=== PATIENT | female | born 1965 | race Caucasian/White ===

== ENCOUNTER 2018-07-09 16:14 | Observation (INO) ==
[2018-07-09] MEDS ORDERED: Ipratropium/Albuterol Neb 3 ML IH ONE (16:45)
[2018-07-09] MEDS ORDERED: methylPREDNISolone 125 MG/2 ML VIAL IVP ONE (16:45)
[2018-07-09 17:08] LABS: Basophils % 0.3 %; Eosinophils # 0.4 K/mcL (0.0-0.6); Eosinophils % 3.3 %; Hematocrit 35.9 % (35.3-44.9); Hemoglobin 11.6 g/dL (11.5-15.4); Lymphocytes # 1.5 K/mcL (0.6-4.6); Lymphocytes % 14.2 %; Mean Corpuscular HGB Conc 32.3 g/dL (31.6-35.5); Mean Corpuscular Hemoglobin 30.3 pg (28.0-33.3); Mean Corpuscular Volume 93.7 fL (83.0-100.0); Mean Platelet Volume 9.4 fL (9.4-12.4); Monocytes # 1.1 K/mcL (0.0-1.3); Neutrophils # 7.6 K/mcL (1.6-8.9); Platelet Count 284 K/mcL (140-400); Red Blood Count 3.83 M/mcL (3.82-4.97); Red Cell Distribution Width 14.3 % (11.5-14.5); Segmented Neutrophils % 70.2 %
[2018-07-09 17:16] LABS: INR 1.1
[2018-07-09 17:19] LABS: Activated Partial Thrombo Time 32.1 Seconds (26.0-36.0)
[2018-07-09 17:27] LABS: BUN/Creatinine Ratio 9 (6-26); Blood Urea Nitrogen 9 mg/dL (6-20); Calcium 8.8 mg/dL (8.6-10.3); Carbon Dioxide 29 mEq/L (23-29); Chloride 102 mEq/L (98-107); Glucose 118 mg/dL (70-105); Osmolality,Calculated 286 (280-300); Potassium 4.2 mEq/L (3.5-5.1); Sodium 138 mEq/L (136-145); Troponin I < 0.03 ng/mL (< 0.04); eGFR For Non-African Americans 58 (> 60)
--- NOTE | 2018-07-09 17:50 | Emergency Department Note ---
Disposition Clinical Impression: COPD with exacerbation Pneumonia Qualifiers: Pneumonia type: due to unspecified organism Laterality: bilateral Lung locati on: lower lobe of lung Qualified Code(s): J18.1 - Lobar pneumonia, unspecified organism Disposition: Admitted As Inpatient Condition: Good SOB HPI - General Chief Complaint: ED General Medical Stated Complaint: Chest Pain with Cough Time Seen by Provider: 07/09/18 17:12 Source: patient, EMS Mode of arrival: EMS Limitations: no limitations Nursing Notes Reviewed: Yes Vital Signs Reviewed: Yes - History of Present Illness Patient presents to the ED via EMS complaining of shortness of breath, productive cough and chest discomfort while coughing. Symptoms been going on for 2 days. Cough is been productive of thick green sputum. Chest discomfort is only during coughing spells. She denies any nasal congestion, rhinorrhea or sore throat. No fever or chills. Shortness of breath is been getting worse over the past few days despite using her regular prescribed inhalers and her albuterol nebulizer treatment every 4 hours. She denies any fever or chills. No abdominal pain, nausea, vomiting or diarrhea. She states she had family memb ers that had the flu over a week ago but she has not had any body aches or fevers. She does have a history of COPD and asthma and wears 3 L of oxygen at home for over 7 years. She has been feeling short of breath despite wearing her usual oxygen. She was last on antibiotics and steroids approximately 3 weeks ago by her PCP for "wheezing". Patient states that EMS thought that her hands and feet were swollen but she states that they are normal size for her and there is no pain or swelling in her extremities. She denies any orthopnea or PND. She received one albuterol treatment by EMS. She is feeling better since also now receiving Solu-Medrol and a DuoNeb here in the ED. - Related Data Home Medications Medication Instructions Recorded Confirmed Bupropion HCl [Wellbutrin Xl] 300 mg PO DAILY 02/13/15 07/09/18 Metoprolol [Lopressor] 25 mg PO BID 02/13/15 07/09/18 Methocarbamol [Robaxin-750] 750 mg PO DAILY PRN 05/12/16 07/09/18 Acetylcysteine [Nac] 500 mg PO BID #0 03/31/17 07/09/18 Albuterol Sulfate [Ventolin Hfa] 2 puff IH Q4H PRN 03/31/17 07/09/18 Aspirin Enteric Coated [Aspirin EC] 81 mg PO DAILY 03/31/17 07/09/18 Atorvastatin Calcium [Lipitor] 20 mg PO DAILY 03/31/17 07/09/18 Benztropine [Cogentin] 0.5 mg PO BID 03/31/17 07/09/18 Celecoxib [Celebrex] 100 mg PO BID 03/31/17 07/09/18 Ergocalciferol (VITAMIN D2) 50,000 unit PO SA 03/31/17 07/09/18 [Vitamin D2] Furosemide [Lasix] 20 mg PO DAILY 03/31/17 07/09/18 Indomethacin 50 mg PO TID 03/31/17 07/09/18 Ipratropium/Albuterol Neb [Duoneb] 3 ml IH Q6HR 03/31/17 07/09/18 Mirtazapine [Remeron] 15 mg PO HS 03/31/17 07/09/18 Montelukast [Singulair] 10 mg PO HS 03/31/17 07/09/18 Omeprazole [PriLOSEC] 40 mg PO DAILY 03/31/17 07/09/18 Ranitidine HCl [Zantac] 300 mg PO DAILY 03/31/17 07/09/18 Umeclidinium [place] [Incruse 1 puff IH DAILY 03/31/17 07/09/18 Ellipta] clonazePAM [Klonopin] 0.5 mg PO TID 03/31/17 07/09/18 lamoTRIgine [Lamictal] 150 mg PO BID 03/31/17 07/09/18 metFORMIN [Glucophage] 500 mg PO BIDWM 03/31/17 07/09/18 risperiDONE [Risperdal] 2 mg PO BID 03/31/17 07/09/18 Cyanocobalamin (Vitamin B-12) 1,000 mcg PO DAILY 07/23/17 07/09/18 [Vitamin B-12] Ferrous Sulfate 325 mg PO DAILY 07/23/17 07/09/18 Pantoprazole Sodium [Protonix] 40 mg PO DAILY 07/23/17 07/09/18 Allergies Allergy/AdvReac Type Severity Reaction Status Date / Time ciprofloxacin [From Cipro] Allergy Hives Verified 07/23/17 10:39 levofloxacin [From Levaquin] Allergy Hives Verified 07/23/17 10:39 moxifloxacin [From Avelox] Allergy Hives Verified 07/23/17 10:39 ziprasidone [From Geodon] Allergy Rash Verified 07/23/17 10:39 Cyclobenzaprine AdvReac Agitated Verified 07/23/17 10:39 [From Flexeril] lurasidone [From Latuda] AdvReac mood Verified 07/23/17 10:39 changes Constitutional: Denies: fever, chills, weakness, weight change Eyes: Denies: eye pain, eye discharge, vision change ENT ED: Denies: ear pain, throat pain, dental pain, hearing loss, epistaxis, congestion, dysphagia Cardiovascular: Denies: chest pain, palpitations, dyspnea on exertion, edema, syncope Respiratory: Reports: cough, dyspnea, wheezes, sputum production. Denies: stridor Gastrointestinal: Denies: abdominal pain, nausea, vomiting, diarrhea, consti pation, hematemesis, melena, hematochezia Genitourinary: Denies: dysuria, frequency, hematuria, discharge Musculoskeletal: Denies: back pain, neck pain, arthralgia, myalgia Integumentary: Denies: rash, abrasion, lesions Neurological: Denies: headache, weakness, numbness, paresthesias, confusion, abn ormal gait, vertigo Psychiatric: Denies: anxiety, depression, suicidal thoughts, homicidal thoughts, auditory hallucinations, visual hallucinations Endocrine: Denies: fatigue Hematological/Lymphatic: Denies: easy bleeding, easy bruising Allergic/Immunologic: Denies: facial swelling, urticaria Past Medical History - Past Medical History Medical history: Reports: arthritis, asthma, COPD, coronary artery disease, diabetes, GERD, hyperlipidemia, hypertension, renal disease, other Surgical history: Reports: , cholecystectomy, hysterectomy, knee replacement Psychiatric history: Reports: anxiety, depression REWINDER history: Reports: no REWINDER history - Social History Smoking Status: Current every day smoker Smokeless Tobacco Status: No Alcohol use: Reports: none Drug use: Reports: none Physical Exam - General Limitations: no limitations General appearance: alert, in no apparent distress - Head Head exam: atraumatic, normocephalic, normal inspection - Eye Eye exam: Present: normal appearance, PERRL, EOMI - ENT ENT exam: normal exam, normal oropharynx, mucous membranes moist - Neck Neck exam: Present: normal inspection, full ROM, trachea midline - Chest Chest inspection: Present: normal inspection, symmetric chest wall rise - Respiratory Respiratory exam: Present: wheezes (scattered). Absent: respiratory distress - Cardiovascular Cardiovascular exam: Present: regular rate, normal rhythm, normal heart sounds - Abdominal Exam Abdominal exam: Present: soft, Non-Tender. Absent: tenderness, distention, guarding, rebound, rigidity - Extremities Exam Extremities exam: Present: normal inspection, full ROM. Absent: tenderness, pedal edema - Neurological Exam Neurological exam: Present: alert, oriented X3 - Psychiatric Psychiatric exam: Present: normal affect, normal mood - Skin Skin exam: Present: warm, dry, intact, normal color Course Course Narrative: Patient presents to the ED with increased shortness of breath, productive cough and wheezing over the past few days despite wearing oxygen and using her daily inhalers. She was wheezing on arrival per nursing staff and was given Solu- Medrol and another DuoNeb with some improvement. On my exam however patient was still wheezing although she was hemodynamically stable, nontoxic in appearance and afebrile. Laboratory studies were unremarkable including BNP, troponin and lactic acid. EKG showed a sinus rhythm. Chest x-ray however was concerning for possibility of developing pneumonia. Given her persistent symptoms despite being on oxygen I felt that she warranted admission for antibiotics and continued breathing treatments. Patient was in agreement. I discussed the case with the hospitalist on-call, Dr. Hollis who agreed to admit the patient. She was started on antibiotics here in the ED. Vital Signs Temperature 97.6 F 07/09/18 16:14 Pulse Rate 84 07/09/18 16:14 Respiratory Rate 15 07/09/18 16:14 Blood Pressure 176/71 07/09/18 16:14 O2 Sat by Pulse Oximetry 97 07/09/18 16:14 Temperature 97.6 F 07/09/18 16:14 Pulse Rate 87 07/09/18 18:41 Respiratory Rate 17 07/09/18 18:41 Blood Pressure 148/85 07/09/18 18:41 O2 Sat by Pulse Oximetry 94 07/09/18 18:41 Oxygen Delivery Oxygen Delivery Nasal Cannula Shortness of Breath/Dyspnea - Differential Diagnosis Likely: acute exacerbation of chronic obstructive airways disease, pneumonia. Unlikely: congestive heart failure - Medical Records Medical records reviewed: Yes I reviewed the patient's medical records. - Lab Data Lab results reviewed: Yes I reviewed the patient's lab results. Result diagrams: 07/09/18 16:55 07/09/18 16:55 Lab Results 07/09/18 07/09/18 07/09/18 Range/Units 16:55 16:55 16:55 WBC 10.9 (4.3-11.1) K/mcL RBC 3.83 (3.82-4.97) M/mcL Hgb 11.6 (11.5-15.4) g/dL Hct 35.9 (35.3-44.9) % MCV 93.7 (83.0-100.0) fL MCH 30.3 (28.0-33.3) pg MCHC 32.3 (31.6-35.5) g/dL RDW 14.3 (11.5-14.5) % Plt Count 284 (140-400) K/mcL MPV 9.4 (9.4-12.4) fL Immature Gran % 2.0 (0-4) % Seg Neutrophils % 70.2 % Lymphocytes % 14.2 % Monocytes % 10.0 % Eosinophils % 3.3 % Basophils % 0.3 % Neutrophils # 7.6 (1.6-8.9) K/mcL Lymphocytes # 1.5 (0.6-4.6) K/mcL Monocytes # 1.1 (0.0-1.3) K/mcL Eosinophils # 0.4 (0.0-0.6) K/mcL Basophils # 0.0 (0.0-0.2) K/mcL PT 12.0 (9.4-12.1) Seconds INR 1.1 APTT 32.1 (26.0-36.0) Seconds Sodium 138 (136-145) mEq/L Potassium 4.2 (3.5-5.1) mEq/L Chloride 102 (98-107) mEq/L Carbon Dioxide 29 (23-29) mEq/L BUN 9 (6-20) mg/dL Creatinine 1.00 (0.60-1.20) mg/dL Est GFR ( Amer) > 60 (> 60) Est GFR (Non-Af Amer) 58 L (> 60) BUN/Creatinine Ratio 9 (6-26) Glucose 118 H (70-105) mg/dL Calculated Osmolality 286 (280-300) Lactic Acid (0.5-2.2) mmol/L Calcium 8.8 (8.6-10.3) mg/dL Troponin I < 0.03 (< 0.04) ng/mL B-Natriuretic Peptide (Less than 100) pg/mL 07/09/18 07/09/18 Range/Units 16:55 16:55 WBC (4.3-11.1) K/mcL RBC (3.82-4.97) M/mcL Hgb (11.5-15.4) g/dL Hct (35.3-44.9) % MCV (83.0-100.0) fL MCH (28.0-33.3) pg MCHC (31.6-35.5) g/dL RDW (11.5-14.5) % Plt Count (140-400) K/mcL MPV (9.4-12.4) fL Immature Gran % (0-4) % Seg Neutrophils % % Lymphocytes % % Monocytes % % Eosinophils % % Basophils % % Neutrophils # (1.6-8.9) K/mcL Lymphocytes # (0.6-4.6) K/mcL Monocytes # (0.0-1.3) K/mcL Eosinophils # (0.0-0.6) K/mcL Basophils # (0.0-0.2) K/mcL PT (9.4-12.1) Seconds INR APTT (26.0-36.0) Seconds Sodium (136-145) mEq/L Potassium (3.5-5.1) mEq/L Chloride (98-107) mEq/L Carbon Dioxide (23-29) mEq/L BUN (6-20) mg/dL Creatinine (0.60-1.20) mg/dL Est GFR ( Amer) (> 60) Est GFR (Non-Af Amer) (> 60) BUN/Creatinine Ratio (6-26) Glucose (70-105) mg/dL Calculated Osmolality (280-300) Lactic Acid 1.8 (0.5-2.2) mmol/L Calcium (8.6-10.3) mg/dL Troponin I (< 0.04) ng/mL B-Natriuretic Peptide 33 (Less than 100) pg/mL - Radiology Data Radiology results reviewed: Yes I reviewed the patient's radiology results. ITS Impressions Chest X-Ray 07/09/18 16:45 IMPRESSION: Small bibasilar lung opacities are nonspecific and may represent atelectasis with pneumonia not excluded. D/ / 07/09/2018 17:25:42 Jama Shukla MD / shira Interpreting Provider: Jama Shukla MD - EKG Data EKG attestation: Yes I reviewed and interpreted this EKG. EKG shows normal: Reports: sinus rhythm Rate: Reports: normal Rhythm: Reports: NSR [place]/QRS: Reports: normal Interpretation: Reports: no acute changes, normal EKG
[2018-07-09] MEDS ORDERED: cefTRIAXone 1,000 MG in Water for inj. (sterile) 20 ML 10 ML IVP ONE (18:04)
[2018-07-09] MEDS ORDERED: Azithromycin 500 MG in D5% in Water 250 ML IVPB ONE (18:04)
[2018-07-09] MEDS ORDERED: Naloxone 0.4 MG/ML INJ IVP PRN ×2 (18:46→19:38)
[2018-07-09] MEDS ORDERED: Dextrose Gel 15 GM/37.5 ML TUBE PO PRN ×4 (18:50→19:38)
[2018-07-09] MEDS ORDERED: Dextrose 4 GM Chewable Tablets PO PRN ×4 (18:50→19:38)
[2018-07-09] MEDS ORDERED: *HR* Dextrose 50 % in Water (Syg) 50 ML SYRINGE IVP PRN ×2 (18:50→19:38)
[2018-07-09] MEDS ORDERED: D5% in Water 1,000 ML IVC PRN ×2 (18:50→19:38)
[2018-07-09] MEDS ORDERED: Methocarbamol 500 MG TABLET PO PRN (19:38)
[2018-07-09] MEDS ORDERED: Indomethacin 25 MG CAPSULE PO SCH (21:00)
[2018-07-09] MEDS ORDERED: Insulin LISPRO 300 UNITS/3 ML VIAL SQ SCH (21:00)
[2018-07-09] MEDS: Celecoxib 100 MG CAPSULE PO SCH (23:24)
[2018-07-09] MEDS: Mirtazapine 15 MG TABLET PO SCH (23:24)
[2018-07-09] MEDS: clonazePAM 0.5 MG TABLET PO SCH (23:24)
[2018-07-09] MEDS: risperiDONE 1 MG TABLET PO SCH (23:25)
[2018-07-09] MEDS: lamoTRIgine 100 MG TABLET PO SCH (23:25)
[2018-07-09] MEDS: ACETYLCYSTEINE 500 MG PO SCH (23:34)
[2018-07-09] MEDS: Ipratropium/Albuterol Neb 3 ML IH SCH (23:50)
[2018-07-10] MEDS: Insulin LISPRO 300 UNITS/3 ML VIAL SQ SCH ×5 (00:34→21:06)
[2018-07-10] MEDS: Ipratropium/Albuterol Neb 3 ML IH SCH ×4 (04:27→22:59)
[2018-07-10] MEDS ORDERED: Insulin LISPRO 300 UNITS/3 ML VIAL SQ SCH (07:30)
[2018-07-10] MEDS: BuPROPion XL (24 HR) 150 MG TABLET PO SCH (07:56)
[2018-07-10] MEDS: Famotidine 20 MG TABLET PO SCH (07:56)
[2018-07-10] MEDS: lamoTRIgine 100 MG TABLET PO SCH ×2 (07:56→21:05)
[2018-07-10] MEDS: clonazePAM 0.5 MG TABLET PO SCH ×3 (07:57→21:05)
[2018-07-10] MEDS: risperiDONE 1 MG TABLET PO SCH ×2 (07:57→21:05)
[2018-07-10] MEDS: *HR* Metformin 500 MG TABLET PO SCH ×2 (07:57→17:15)
[2018-07-10] MEDS: Celecoxib 100 MG CAPSULE PO SCH (07:57)
[2018-07-10] MEDS: Cholecalciferol (D-3) 1,000 UNIT TABLET PO SCH (07:57)
[2018-07-10] MEDS: Aspirin Enteric Coated 81 MG Tablet PO SCH (07:58)
[2018-07-10] MEDS: Furosemide 20 MG TABLET PO SCH (07:58)
[2018-07-10] MEDS: Cyanocobalamin (B-12) 1,000 MCG TABLET PO SCH (07:59)
[2018-07-10] MEDS ORDERED: NON-FORMULARY MEDICATION 1 EACH EACH (Pantoprazole Sodium [Protonix] 40 MG) PO SCH (09:00)
[2018-07-10] MEDS: (Incruse Ellipta] 1 PUFF) IH SCH (10:39)
[2018-07-10] MEDS: ACETYLCYSTEINE 500 MG PO SCH ×2 (10:39→21:34)
--- NOTE | 2018-07-10 10:50 | Internal Med History&Physical ---
Date of Encounter: 07/10/18 Time of Encounter: 10:10 Assessment and Plan (1) COPD with exacerbation Current visit: Yes Status: Acute She was given Rocephin, Solu-Medrol, and Zithromax in emergency room. Symbicort will be started with IV steroids. Chest CT will be done to further evaluate for pneumonia. (2) Pneumonia Current visit: Yes Status: Acute As above Qualifiers: Pneumonia type: due to unspecified organism Laterality: bilateral Lung location: lower lobe of lung Qualified Code(s): J18.1 - Lobar pneumonia, unspecified organism (3) CKD (chronic kidney disease) stage 3, GFR 30-59 ml/min Current visit: Yes Status: Chronic She was unaware of this. Will discontinue NSAIDs and monitor. Internal Medicine - H&P: HPI Chief complaint: Cough and dyspnea Admitted From: Emergency Dept Plans for Post Hospital Care: Home History of present illness: Ms. Mancuso is a 53 year old female who came to emergency room complaining of 3-4 week history of cough with green/yellow mucus. She received day prescription for amoxicillin and steroids from her PCP approximately 2 weeks ago without resolution of symptoms. She denies fevers or chills. She was evaluated in emergency room and was felt to have exacerbation of COPD. She was admitted to [facility] floor for ongoing care needs. Respiratory history is significant for having smoked since age 14 up to 2 packs per day. PFTs 09/12/2016 showed FVC 60% predicted, FEV1 60% predicted, FEV 1/FVC 71%, MVV 31% predicted, RV 205% predicted, and DLCO 47% predicted. There was slight improvement in FEV1 postbronchodilator. She was diagnosed with obstructive and restrictive lung disease. She wears oxygen at home 02/12. She denies known OUSMANE. Past Med Surg Social Fam HX - Past Medical History Medical history: arthritis, asthma, COPD, coronary artery disease, diabetes, G ERD, hyperlipidemia, hypertension, renal disease, other Additional medical history: OA, allergic rhinitis, B12 deficiency, iron deficiency, vit D deficiency, RLS Psychiatric history: anxiety, depression - Past Surgical History Surgical History: , cholecystectomy, hysterectomy, knee replacement Additional surgical history: heart cath no stents, EGD - Social History Smoking Status: Current every day smoker Smokeless Tobacco Status: No Alcohol use: none Drug use: none - Family History Mother Living Status: Hx Family Respiratory Disorders: Yes Internal Medicine - H&P: Meds Bupropion HCl [Wellbutrin Xl] 300 mg PO DAILY 02/13/15 [History] Metoprolol [Lopressor] 25 mg PO BID 02/13/15 [History] Methocarbamol [Robaxin-750] 750 mg PO DAILY PRN 05/12/16 [History] Acetylcysteine [Nac] 500 mg PO BID #0 03/31/17 [History] Albuterol Sulfate [Ventolin Hfa] 2 puff IH Q4H PRN 03/31/17 [History] Aspirin Enteric Coated [Aspirin EC] 81 mg PO DAILY 03/31/17 [History] Atorvastatin Calcium [Lipitor] 20 mg PO DAILY 03/31/17 [History] Benztropine [Cogentin] 0.5 mg PO BID 03/31/17 [History] Celecoxib [Celebrex] 100 mg PO BID 03/31/17 [History] Ergocalciferol (VITAMIN D2) [Vitamin D2] 50,000 unit PO SA 03/31/17 [History] Furosemide [Lasix] 20 mg PO DAILY 03/31/17 [History] Indomethacin 50 mg PO TID 03/31/17 [History] Ipratropium/Albuterol Neb [Duoneb] 3 ml IH Q6HR 03/31/17 [History] Mirtazapine [Remeron] 15 mg PO HS 03/31/17 [History] Montelukast [Singulair] 10 mg PO HS 03/31/17 [History] Omeprazole [PriLOSEC] 40 mg PO DAILY 03/31/17 [History] Ranitidine HCl [Zantac] 300 mg PO DAILY 03/31/17 [History] Umeclidinium [place] [Incruse Ellipta] 1 puff IH DAILY 03/31/17 [History] clonazePAM [Klonopin] 0.5 mg PO TID 03/31/17 [History] lamoTRIgine [Lamictal] 150 mg PO BID 03/31/17 [History] metFORMIN [Glucophage] 500 mg PO BIDWM 03/31/17 [History] risperiDONE [Risperdal] 2 mg PO BID 03/31/17 [History] Cyanocobalamin (Vitamin B-12) [Vitamin B-12] 1,000 mcg PO DAILY 07/23/17 [History] Ferrous Sulfate 325 mg PO DAILY 07/23/17 [History] Pantoprazole Sodium [Protonix] 40 mg PO DAILY 07/23/17 [History] Allergy/AdvReac Type Severity Reaction Status Date / Time ciprofloxacin [From Cipro] Allergy Hives Verified 07/23/17 10:39 levofloxacin [From Levaquin] Allergy Hives Verified 07/23/17 10:39 moxifloxacin [From Avelox] Allergy Hives Verified 07/23/17 10:39 ziprasidone [From Geodon] Allergy Rash Verified 07/23/17 10:39 Cyclobenzaprine AdvReac Agitated Verified 07/23/17 10:39 [From Flexeril] lurasidone [From Latuda] AdvReac mood Verified 07/23/17 10:39 changes All Systems PM: A 10-system review of systems was performed and is negative for pertinent findings except as documented above in the HPI. Review of systems: Gen.: She states her weight has increased approximately 30 pounds in the past year, unintentionally. She feels this is due to decreased activity because of pain in her knees. Cardiovascular: She has history of hypertension but denies VT heart failure DVT or pulmonary embolus. She has occasional chest pain on exertion. Regadenoson EST 10/29/2016 showed EKG and perfusion imaging negative for ischemia. LVEF was 71%. The maternal echocardiogram 10/14/2017 showed LVEF of 60-65%. The interventricular septum and posterior wall thickness measurements were 1.05 and 0.82 cm respectively. Echocardiogram 03/11/2016 showed no significant valvular abnormalities. Respiratory: As per history of present illness GI: She has had cholecystectomy. She has GERD. She denies disorders of her liver or exocrine pancreas : She denies hematuria dysuria or kidney stones Neurologic: She denies large distribution strokes or seizures. Endocrine: She was diagnosed with DM 2 at age 23. Hemoglobin A1c was 6.7% on 06/08/2018. She has hyperlipidemia but denies thyroid disease. Hematology/oncology: She denies blood disorders cancers or anemia Psychiatric: She has anxiety and depression but denies other mental health diagnoses. [place] skeletal: She has had bilateral total knee replacements. She has DJD but denies gout. - Constitutional Vitals: Temp Pulse Resp BP Pulse Ox 98.7 F 88 20 142/88 92 07/10/18 06:34 07/10/18 06:34 07/10/18 06:34 07/10/18 06:34 07/10/18 06:34 Exam: Gen.: She is a well-developed obese female lying in bed who appears slightly dyspneic but in no acute distress otherwise HEENT: Head is atraumatic and normocephalic. Eyes: EOMI. There is no scleral icterus. Mouth: Mucosa is moist. Neck: Supple and nontender. There is no thyromegaly or adenopathy noted. Heart: Regular without murmurs gallops or ectopics Lungs: She has prolonged expiratory phase and mild diffuse wheezing. Abdomen: Soft and nontender. No masses or guarding are noted. Extremities: She has well-healed knee scars from previous TKR. There is no cyanosis edema or clubbing noted. Dorsalis pedis and posttibial pulses are trace palpable bilaterally. Neurologic: Mental status: She is talkative and a good historian. Cranial nerves: Smile is symmetric. Forehead wrinkles bilaterally. Tongue protrudes midline. EOMI. Motor: There is no pronator drift. Cerebellar: Finger to nose is intact bilaterally. Skin: Warm and dry Internal Med - H&P Results - Labs CBC & Chem 7: 07/09/18 16:55 07/09/18 16:55 Labs: Short CBC 07/09/18 Range/Units 16:55 WBC 10.9 (4.3-11.1) K/mcL Hgb 11.6 (11.5-15.4) g/dL Hct 35.9 (35.3-44.9) % Plt Count 284 (140-400) K/mcL Neutrophils # 7.6 (1.6-8.9) K/mcL BMP 07/09/18 16:55 Sodium 138 Potassium 4.2 Chloride 102 Carbon Dioxide 29 BUN 9 Creatinine 1.00 Glucose 118 H Calcium 8.8 Cardiac Enzymes 07/09/18 Range/Units 16:55 Troponin I < 0.03 (< 0.04) ng/mL - Impressions ITS Impressions Chest X-Ray 07/09/18 16:45 IMPRESSION: Small bibasilar lung opacities are nonspecific and may represent atelectasis with pneumonia not excluded. D/ / 07/09/2018 17:25:42 Jama Shukla MD / bcarter Interpreting Provider: Jama Shukla MD - VTE Reasons for not Prescribing Prophylaxis: Treatment not Indicated - Low risk for VTE
[2018-07-10] MEDS ORDERED: Azithromycin 500 MG in D5% in Water 250 ML IVPB SCH ×2 (11:00→18:00)
[2018-07-10] MEDS ORDERED: cefTRIAXone 1,000 MG in Water for inj. (sterile) 20 ML 10 ML IVP SCH ×2 (11:00→18:00)
[2018-07-10] MEDS: methylPREDNISolone 125 MG/2 ML VIAL IVP SCH ×2 (12:07→17:15)
[2018-07-10] MEDS: Budesonide/Formoterol 160/4.5 1 PUFF INH IH SCH ×2 (12:59→22:59)
[2018-07-10] MEDS: Acetaminophen 325 MG TABLET PO PRN (14:09)
--- NOTE | 2018-07-10 15:07 | Electrocardiograph Report ---
[place] [id number] Test Date: 2018-07-09 Pat Name: Leeann Mancuso Department: EDP-12 Room: [facility] Gender: F Curriculum And Assessment Director: : 1965 Requested By: Marysol Flowers Order Number: [id number] Reading MD: Annetta Sotelo Measurements Intervals [place] Rate: 78 P: 73 NM: 143 QRS: 74 QRSD: 94 T: 69 QT: 367 QTc: 418 Interpretive Statements Sinus rhythm Electronically Signed On 07-10-2018 15:05:55 EST by Annetta Sotelo
[2018-07-10] MEDS: Lactobacillus 1 EACH CAP.SPRINK PO SCH (21:05)
[2018-07-10] MEDS: Mirtazapine 15 MG TABLET PO SCH (21:05)
[2018-07-11] MEDS: Ipratropium/Albuterol Neb 3 ML IH SCH ×2 (04:49→10:04)
[2018-07-11] MEDS: Acetaminophen 325 MG TABLET PO PRN (05:50)
[2018-07-11] MEDS: methylPREDNISolone 125 MG/2 ML VIAL IVP SCH (05:51)
[2018-07-11 06:25] LABS: Basophils # 0.1 K/mcL (0.0-0.2); Basophils % 0.4 %; Hematocrit 33.9 % (35.3-44.9); Hemoglobin 10.9 g/dL (11.5-15.4); Immature Granulocytes % 7.3 % (0-4); Lymphocytes # 1.1 K/mcL (0.6-4.6); Lymphocytes % 9.1 %; Mean Corpuscular HGB Conc 32.2 g/dL (31.6-35.5); Mean Corpuscular Hemoglobin 30.1 pg (28.0-33.3); Mean Corpuscular Volume 93.6 fL (83.0-100.0); Mean Platelet Volume 9.8 fL (9.4-12.4); Monocytes % 7.8 %; Platelet Count 375 K/mcL (140-400); Red Blood Count 3.62 M/mcL (3.82-4.97); Red Cell Distribution Width 14.3 % (11.5-14.5); Segmented Neutrophils % 75.4 %
[2018-07-11 06:36] VITALS: BP 147/85
[2018-07-11 06:59] LABS: Neutrophils # 9.4 K/mcL (1.6-8.9)
[2018-07-11 07:10] LABS: Platelet Estimate Normal (Normal)
[2018-07-11] MEDS: *HR* Metformin 500 MG TABLET PO SCH (08:05)
[2018-07-11] MEDS: Cholecalciferol (D-3) 1,000 UNIT TABLET PO SCH (08:05)
[2018-07-11] MEDS: Furosemide 20 MG TABLET PO SCH (08:05)
[2018-07-11] MEDS: lamoTRIgine 100 MG TABLET PO SCH (08:06)
[2018-07-11] MEDS: BuPROPion XL (24 HR) 150 MG TABLET PO SCH (08:06)
[2018-07-11] MEDS: Aspirin Enteric Coated 81 MG Tablet PO SCH (08:06)
[2018-07-11] MEDS: risperiDONE 1 MG TABLET PO SCH (08:06)
[2018-07-11] MEDS: Cyanocobalamin (B-12) 1,000 MCG TABLET PO SCH (08:06)
[2018-07-11] MEDS: Insulin LISPRO 300 UNITS/3 ML VIAL SQ SCH (08:07)
[2018-07-11] MEDS: Famotidine 20 MG TABLET PO SCH (08:07)
[2018-07-11] MEDS: Lactobacillus 1 EACH CAP.SPRINK PO SCH (08:13)
[2018-07-11] MEDS: ACETYLCYSTEINE 500 MG PO SCH (08:14)
[2018-07-11] MEDS: (Incruse Ellipta] 1 PUFF) IH SCH (08:14)
[2018-07-11] MEDS: clonazePAM 0.5 MG TABLET PO SCH (08:14)
[2018-07-11 09:21] LABS: % Iron Saturation 20 % (15-50); Iron 58 mcg/dL (50-170); Transferrin 210 mg/dL (203-362)
--- NOTE | 2018-07-11 09:37 | Discharge Summary ---
Orders not resulted at time of discharge: Pending orders 07/11/18 05:59 Ferritin AM 0400 Iron Profile AM 0400 Date of Encounter: 07/11/18 Time of Encounter: 09:25 - Discharge Diagnosis (1) COPD with exacerbation Priority: Primary Status: Acute (2) Pneumonia Priority: Secondary Status: Acute Qualifiers: Pneumonia type: due to unspecified organism Laterality: bilateral Lung location: lower lobe of lung Qualified Code(s): J18.1 - Lobar pneumonia, unspecified organism (3) CKD (chronic kidney disease) stage 3, GFR 30-59 ml/min Priority: Secondary Status: Chronic Hospital course: Ms. Mancuso is a 53 year old female who came to emergency room complaining of 3-4 week history of cough with green/yellow mucus. She received day prescription for amoxicillin and steroids from her PCP approximately 2 weeks ago without resolution of symptoms. She denies fevers or chills. She was evaluated in emergency room and was felt to have exacerbation of COPD. She was admitted to [facility] floor for ongoing care needs. Initial orders were written by the emergency room physician. I saw her on July 10 and performed a history and physical. She was started on Rocephin and Zithromax with Solu-Medrol in emergency room. Symbicort was added. Chest CT was done to further evaluate. The chest CT showed bilateral pulmonary infiltrates with diffuse interstitial nodular pattern most pronounced in the lower lobes and posterior portions of the upper lobes suspicious for atypical infectious etiology. The mediastinal lymph nodes were mildly enlarged and likely reactive. When I saw her on July 11 she felt significantly improved and stable for discharge home. She will continue with antibiotic and probiotic for 5 additional days at discharge. She will follow with her PCP Dr. Noyola within 1 week. She was unaware she had chronic kidney disease. NSAIDs will be discontinued and her PCP can monitor renal indices. - Time Spent with Patient Total time spent providing and/or coordinating discharge services: - Discharge Medications Prescriptions: New Acetaminophen [Tylenol] 650 mg PO Q6HR PRN tablet PRN Reason: Pain Cefuroxime PO [Ceftin] 500 mg PO Q12HR #10 tablet Azithromycin [Zithromax] 250 mg PO DAILY #5 tablet Lactobacillus [Culturelle] 1 each PO BID #10 cap.sprink Continue Albuterol Sulfate [Ventolin Hfa] 2 puff IH Q4H PRN PRN Reason: Shortness Of Breath Aspirin Enteric Coated [Aspirin EC] 81 mg PO DAILY Atorvastatin Calcium [Lipitor] 20 mg PO DAILY Benztropine [Cogentin] 0.5 mg PO BID clonazePAM [Klonopin] 0.5 mg PO TID Ergocalciferol (VITAMIN D2) [Vitamin D2] 50,000 unit PO SA Furosemide [Lasix] 20 mg PO DAILY Ipratropium/Albuterol Neb [Duoneb] 3 ml IH Q6HR lamoTRIgine [Lamictal] 150 mg PO BID metFORMIN [Glucophage] 500 mg PO BIDWM Mirtazapine [Remeron] 15 mg PO HS Montelukast [Singulair] 10 mg PO HS Acetylcysteine [Nac] 500 mg PO BID #0 Omeprazole [PriLOSEC] 40 mg PO DAILY Ranitidine HCl [Zantac] 300 mg PO DAILY risperiDONE [Risperdal] 2 mg PO BID Umeclidinium [place] [Incruse Ellipta] 1 puff IH DAILY Cyanocobalamin (Vitamin B-12) [Vitamin B-12] 1,000 mcg PO DAILY Ferrous Sulfate 325 mg PO DAILY Pantoprazole Sodium [Protonix] 40 mg PO DAILY Bupropion HCl [Wellbutrin Xl] 300 mg PO DAILY Metoprolol [Lopressor] 25 mg PO BID Methocarbamol [Robaxin-750] 750 mg PO DAILY PRN PRN Reason: Muscle Spasm Discontinued Celecoxib [Celebrex] 100 mg PO BID Indomethacin 50 mg PO TID Home Medications: Bupropion HCl [Wellbutrin Xl] 300 mg PO DAILY 02/13/15 [History] Metoprolol [Lopressor] 25 mg PO BID 02/13/15 [History] Methocarbamol [Robaxin-750] 750 mg PO DAILY PRN 05/12/16 [History] Acetylcysteine [Nac] 500 mg PO BID #0 03/31/17 [History] Albuterol Sulfate [Ventolin Hfa] 2 puff IH Q4H PRN 03/31/17 [History] Aspirin Enteric Coated [Aspirin EC] 81 mg PO DAILY 03/31/17 [History] Atorvastatin Calcium [Lipitor] 20 mg PO DAILY 03/31/17 [History] Benztropine [Cogentin] 0.5 mg PO BID 03/31/17 [History] Ergocalciferol (VITAMIN D2) [Vitamin D2] 50,000 unit PO SA 03/31/17 [History] Furosemide [Lasix] 20 mg PO DAILY 03/31/17 [History] Ipratropium/Albuterol Neb [Duoneb] 3 ml IH Q6HR 03/31/17 [History] Mirtazapine [Remeron] 15 mg PO HS 03/31/17 [History] Montelukast [Singulair] 10 mg PO HS 03/31/17 [History] Omeprazole [PriLOSEC] 40 mg PO DAILY 03/31/17 [History] Ranitidine HCl [Zantac] 300 mg PO DAILY 03/31/17 [History] Umeclidinium [place] [Incruse Ellipta] 1 puff IH DAILY 03/31/17 [History] clonazePAM [Klonopin] 0.5 mg PO TID 03/31/17 [History] lamoTRIgine [Lamictal] 150 mg PO BID 03/31/17 [History] metFORMIN [Glucophage] 500 mg PO BIDWM 03/31/17 [History] risperiDONE [Risperdal] 2 mg PO BID 03/31/17 [History] Cyanocobalamin (Vitamin B-12) [Vitamin B-12] 1,000 mcg PO DAILY 07/23/17 [History] Ferrous Sulfate 325 mg PO DAILY 07/23/17 [History] Pantoprazole Sodium [Protonix] 40 mg PO DAILY 07/23/17 [History] Acetaminophen [Tylenol] 650 mg PO Q6HR PRN tablet 07/11/18 [Rx] Azithromycin [Zithromax] 250 mg PO DAILY #5 tablet 07/11/18 [Rx] Cefuroxime PO [Ceftin] 500 mg PO Q12HR #10 tablet 07/11/18 [Rx] Lactobacillus [Culturelle] 1 each PO BID #10 cap.sprink 07/11/18 [Rx] Allergies/Adverse Reactions: Allergy/AdvReac Type Severity Reaction Status Date / Time ciprofloxacin [From Cipro] Allergy Hives Verified 07/23/17 10:39 levofloxacin [From Levaquin] Allergy Hives Verified 07/23/17 10:39 moxifloxacin [From Avelox] Allergy Hives Verified 07/23/17 10:39 ziprasidone [From Geodon] Allergy Rash Verified 07/23/17 10:39 Cyclobenzaprine AdvReac Agitated Verified 07/23/17 10:39 [From Flexeril] lurasidone [From Latuda] AdvReac mood Verified 07/23/17 10:39 changes Date of admission: 07/09/18 19:01 Primary care physician: Meli Noyola - Constitutional Vitals: Temp Pulse Resp BP Pulse Ox 98.1 F 81 18 147/85 93 07/11/18 06:34 07/11/18 06:34 07/11/18 06:34 07/11/18 06:34 07/11/18 06:34 - Patient Status Disposition: Home, Self-Care Condition: Good - Discharge Instructions Follow Up With: Meli Noyola MD [Primary Care Provider] - - Diet and Activity Activity: resume usual activities as tolerated, wear oxygen at all times Diet: advance to your usual diet - VTE Reasons for not Prescribing Prophylaxis: Treatment not Indicated - Low risk for VTE
[2018-07-11 09:38] LABS: Ferritin 119 ng/mL (10-120)
--- NOTE | 2018-07-11 09:43 | Physician Discharge Referral ---
- Diagnosis (1) COPD with exacerbation Status: Acute (2) Pneumonia Status: Acute (3) CKD (chronic kidney disease) stage 3, GFR 30-59 ml/min Status: Chronic - Respiratory Orders Smoking Cessation: Smoking cessation has been advised. For more information, call the [place] Tobacco Quit Line at 2-145-XSQH-NOW. - Transfer Medications Prescriptions: Cefuroxime PO [Ceftin] 500 mg PO Q12HR #10 tablet Azithromycin [Zithromax] 250 mg PO DAILY #5 tablet Budesonide/Formoterol 160/4.5 [Symbicort 160/4.5] 2 puff IH BIDR #1 hfa.aer.ad Lactobacillus [Culturelle] 1 each PO BID #10 cap.sprink Home Medications: Bupropion HCl [Wellbutrin Xl] 300 mg PO DAILY 02/13/15 [History] Metoprolol [Lopressor] 25 mg PO BID 02/13/15 [History] Methocarbamol [Robaxin-750] 750 mg PO DAILY PRN 05/12/16 [History] Acetylcysteine [Nac] 500 mg PO BID #0 03/31/17 [History] Albuterol Sulfate [Ventolin Hfa] 2 puff IH Q4H PRN 03/31/17 [History] Aspirin Enteric Coated [Aspirin EC] 81 mg PO DAILY 03/31/17 [History] Atorvastatin Calcium [Lipitor] 20 mg PO DAILY 03/31/17 [History] Benztropine [Cogentin] 0.5 mg PO BID 03/31/17 [History] Ergocalciferol (VITAMIN D2) [Vitamin D2] 50,000 unit PO SA 03/31/17 [History] Furosemide [Lasix] 20 mg PO DAILY 03/31/17 [History] Ipratropium/Albuterol Neb [Duoneb] 3 ml IH Q6HR 03/31/17 [History] Mirtazapine [Remeron] 15 mg PO HS 03/31/17 [History] Montelukast [Singulair] 10 mg PO HS 03/31/17 [History] Omeprazole [PriLOSEC] 40 mg PO DAILY 03/31/17 [History] Ranitidine HCl [Zantac] 300 mg PO DAILY 03/31/17 [History] Umeclidinium [place] [Incruse Ellipta] 1 puff IH DAILY 03/31/17 [History] clonazePAM [Klonopin] 0.5 mg PO TID 03/31/17 [History] lamoTRIgine [Lamictal] 150 mg PO BID 03/31/17 [History] metFORMIN [Glucophage] 500 mg PO BIDWM 03/31/17 [History] risperiDONE [Risperdal] 2 mg PO BID 03/31/17 [History] Cyanocobalamin (Vitamin B-12) [Vitamin B-12] 1,000 mcg PO DAILY 07/23/17 [History] Ferrous Sulfate 325 mg PO DAILY 07/23/17 [History] Pantoprazole Sodium [Protonix] 40 mg PO DAILY 07/23/17 [History] Acetaminophen [Tylenol] 650 mg PO Q6HR PRN tablet 07/11/18 [Rx] Azithromycin [Zithromax] 250 mg PO DAILY #5 tablet 07/11/18 [Rx] Budesonide/Formoterol 160/4.5 [Symbicort 160/4.5] 2 puff IH BIDR #1 hfa.aer.ad 07/11/18 [Rx] Cefuroxime PO [Ceftin] 500 mg PO Q12HR #10 tablet 07/11/18 [Rx] Lactobacillus [Culturelle] 1 each PO BID #10 cap.sprink 07/11/18 [Rx] Allergies/Adverse Reactions: Allergy/AdvReac Type Severity Reaction Status Date / Time ciprofloxacin [From Cipro] Allergy Hives Verified 07/23/17 10:39 levofloxacin [From Levaquin] Allergy Hives Verified 07/23/17 10:39 moxifloxacin [From Avelox] Allergy Hives Verified 07/23/17 10:39 ziprasidone [From Geodon] Allergy Rash Verified 07/23/17 10:39 Cyclobenzaprine AdvReac Agitated Verified 07/23/17 10:39 [From Flexeril] lurasidone [From Latuda] AdvReac mood Verified 07/23/17 10:39 changes Certification: Further, I certify that my clinical findings support that this patient is homebound (i.e. absences from home require considerable and taxing effort and are for medical reasons or scientology services or infrequently or short duration when for other reasons) because: Homebound Reason: Leaving home requires considerable and taxing effort due to condition (copd) Attestation: My signature below is to certify that this patient is under my care and that I, or nurse practitioner, or a physician's periodontal assistant working with me, has a [id number] encounter with this patient.
[2018-07-11] MEDS: Budesonide/Formoterol 160/4.5 1 PUFF INH IH SCH (10:04)
== END 2018-07-11 10:25 | disposition home or self-care (01) ==
LOC: EMEROOPIK 16:14 → INPPIK 16:14
PROVIDERS: ADMIT Internal Medicine; ATTEND Internal Medicine

== ENCOUNTER 2019-02-11 18:13 | Inpatient (IN) ==
[2019-02-11] MEDS ORDERED: 0.9 % Sodium Chloride 1,000 ML IVC ONE (18:56)
--- NOTE | 2019-02-11 19:00 | Emergency Department Note ---
Disposition Clinical Impression: Colitis, Hyponatremia, Hypokalemia, Dehydration Disposition: Admitted As Inpatient Condition: Fair Referrals: Meli Noyola MD [Primary Care Provider] - Forms: Work/School Release, ED Satisfaction Letter Time of Disposition: 21:55 Nausea/Vomiting/Diarrhea HPI - General Chief complaint: ED Nausea/Vomiting/Diarrhea Stated complaint: possible dehydration Time Seen by Provider: 02/11/19 18:33 Source: patient Mode of arrival: private vehicle Limitations: no limitations Nursing Notes Reviewed: Yes Vital Signs Reviewed: Yes - History of Present Illness Pt Subjective Complaint: nausea, vomiting, diarrhea Onset (ago): day(s) (4 days (triage note says 10 days but I confirmed with the patient symptoms started this Friday)) Description of emesis: watery, other (Has not vomited today. Vomiting was much worse on Friday and is gradually settled down and no vomiting today.) Description of Diarrhea: water, other (This diarrhea has persisted) Associated Abdominal Pain: Yes If pain, Location of pain: diffuse Severity: mild Quality: cramping Consistency: intermittent Improves with: nothing Worsens with: eating Context: recent antibiotic use (Completed a course of Zithromax 2 weeks ago) Associated symptoms: Reports: cough - Related Data Home Medications Medication Instructions Recorded Confirmed Bupropion HCl [Wellbutrin Xl] 300 mg PO DAILY 02/13/15 02/11/19 Metoprolol [Lopressor] 25 mg PO BID 02/13/15 02/11/19 Methocarbamol [Robaxin-750] 750 mg PO DAILY PRN 05/12/16 02/11/19 Acetylcysteine [Nac] 500 mg PO BID #0 03/31/17 02/11/19 Albuterol Sulfate [Ventolin Hfa] 2 puff IH Q4H PRN 03/31/17 02/11/19 Aspirin Enteric Coated [Aspirin EC] 81 mg PO DAILY 03/31/17 02/11/19 Atorvastatin Calcium [Lipitor] 20 mg PO DAILY 03/31/17 02/11/19 Benztropine [Cogentin] 0.5 mg PO BID 03/31/17 02/11/19 Ergocalciferol (VITAMIN D2) 50,000 unit PO SA 03/31/17 02/11/19 [Vitamin D2] Furosemide [Lasix] 20 mg PO DAILY 03/31/17 02/11/19 Ipratropium/Albuterol Neb [Duoneb] 3 ml IH Q6HR 03/31/17 02/11/19 Mirtazapine [Remeron] 15 mg PO HS 03/31/17 02/11/19 Montelukast [Singulair] 10 mg PO HS 03/31/17 02/11/19 Omeprazole [PriLOSEC] 40 mg PO DAILY 03/31/17 02/11/19 Ranitidine HCl [Zantac] 300 mg PO DAILY 03/31/17 02/11/19 Umeclidinium [place] [Incruse 1 puff IH DAILY 03/31/17 02/11/19 Ellipta] clonazePAM [Klonopin] 0.5 mg PO TID 03/31/17 02/11/19 lamoTRIgine [Lamictal] 150 mg PO BID 03/31/17 02/11/19 metFORMIN [Glucophage] 500 mg PO BIDWM 03/31/17 02/11/19 risperiDONE [Risperdal] 2 mg PO BID 03/31/17 02/11/19 Cyanocobalamin (Vitamin B-12) 1,000 mcg PO DAILY 07/23/17 02/11/19 [Vitamin B-12] Ferrous Sulfate 325 mg PO DAILY 07/23/17 02/11/19 Pantoprazole Sodium [Protonix] 40 mg PO DAILY 07/23/17 02/11/19 Previous Rx's Medication Instructions Recorded Acetaminophen [Tylenol] 650 mg PO Q6HR PRN tablet 07/11/18 Budesonide/Formoterol 160/4.5 2 puff IH BIDR #1 hfa.aer.ad 07/11/18 [Symbicort 160/4.5] Allergies Allergy/AdvReac Type Severity Reaction Status Date / Time ciprofloxacin [From Cipro] Allergy Hives Verified 07/23/17 10:39 levofloxacin [From Levaquin] Allergy Hives Verified 07/23/17 10:39 moxifloxacin [From Avelox] Allergy Hives Verified 07/23/17 10:39 ziprasidone [From Geodon] Allergy Rash Verified 07/23/17 10:39 Cyclobenzaprine AdvReac Agitated Verified 07/23/17 10:39 [From Flexeril] lurasidone [From Latuda] AdvReac mood Verified 07/23/17 10:39 changes All systems ED: reviewed and negative except as stated. Constitutional: Denies: fever, chills ENT ED: Denies: ear pain, throat pain, congestion Cardiovascular: Denies: chest pain, palpitations Respiratory: Reports: cough. Denies: dyspnea, wheezes Gastrointestinal: Reports: nausea, vomiting, diarrhea Integumentary: Denies: rash Past Medical History - Past Medical History Attestation: Yes The following information was validated with the patient. Source: patient, old records reviewed, nursing notes reviewed Medical history: Reports: arthritis, asthma, COPD, coronary artery disease, diabetes, GERD, hyperlipidemia, hypertension, renal disease, other Surgical history: Reports: , cholecystectomy, hysterectomy, knee replacement Psychiatric history: Reports: anxiety, depression WELLNESS COACH history: Reports: no WELLNESS COACH history - Social History Smoking Status: Current every day smoker Smokeless Tobacco Status: No Alcohol use: Reports: none Drug use: Reports: none Physical Exam - General Limitations: no limitations General appearance: alert, in no apparent distress - Head Head exam: atraumatic, normocephalic, normal inspection - Eye Eye exam: Present: normal appearance, PERRL, EOMI. Absent: scleral icterus, conjunctival injection - ENT ENT exam: normal exam, normal oropharynx, mucous membranes dry, TM's normal bilaterally, normal external ear exam - Neck Neck exam: Present: normal inspection, full ROM, trachea midline. Absent: meningismus - Chest Chest inspection: Present: normal inspection, symmetric chest wall rise. Absent: tenderness - Respiratory Respiratory exam: Present: normal lung sounds bilaterally. Absent: respiratory distress, wheezes - Cardiovascular Cardiovascular exam: Present: normal rhythm, tachycardia, normal heart sounds - Abdominal Exam Abdominal exam: Present: soft, Non-Tender, normal bowel sounds. Absent: distention - Extremities Exam Extremities exam: Present: full ROM. Absent: tenderness - Neurological Exam Neurological exam: Present: alert, oriented X3 - Psychiatric Psychiatric exam: Present: normal affect, normal mood - Skin Skin exam: Present: warm, dry. Absent: rash Course Course Narrative: Patient presents with possibility of dehydration. She was seen in her doctor's office today and they sent her over here because they thought she might be dehydrated. She had vomiting and diarrhea over the past 4 days. The vomiting has subsided although the diarrhea has persisted. Clinically her tongue is dry and she is little bit tachycardic so she could be dehydrated. I am going to give her some fluids and check some labs including a stool for C. difficile. Disposition will be based on diagnostic results and reevaluation. - Reevaluation(s) Reevaluation #1: White count is elevated at 17,000. Sodium is low at 123 and potassium is low at 2.8. Creatinine is twice her baseline. So there is dehydration and electro abnormalities. CT scan shows indications of colitis. Patient needs to be admitted to the hospital. I bar he spoke with the hospitalist, Dr. Hollis, who excepted the patient for admission. He recommended Flagyl therapy. Time: 21:53 - Consultations Consultation #1: Dr. Hollis, hospitalist - I discussed the case with the hospitalist. He accepted the patient for admission. Time: 21:45 Vital Signs Temperature 97.8 F 02/11/19 18:17 Pulse Rate 100 02/11/19 18:17 Respiratory Rate 18 02/11/19 18:17 Blood Pressure 140/78 02/11/19 18:17 O2 Sat by Pulse Oximetry 91 02/11/19 18:17 Temperature 97.8 F 02/11/19 18:17 Pulse Rate 84 02/11/19 21:20 Respiratory Rate 18 02/11/19 21:20 Blood Pressure 130/77 02/11/19 21:20 O2 Sat by Pulse Oximetry 96 02/11/19 21:20 Oxygen Delivery Oxygen Delivery Nasal Cannula Nausea/Vomiting/Diarrhea - Medical Records Medical records reviewed: Yes I reviewed the patient's medical records. - Lab Data Lab results reviewed: Yes I reviewed the patient's lab results. Result diagrams: 02/11/19 19:11 02/11/19 19:11 Lab Results 02/11/19 02/11/19 02/11/19 Range/Units 19:11 19:11 19:11 WBC 17.6 H (4.3-11.1) K/mcL RBC 4.33 (3.82-4.97) M/mcL Hgb 12.8 (11.5-15.4) g/dL Hct 36.8 (35.3-44.9) % MCV 85.0 (83.0-100.0) fL MCH 29.6 (28.0-33.3) pg MCHC 34.8 (31.6-35.5) g/dL RDW 14.4 (11.5-14.5) % Plt Count 377 (140-400) K/mcL MPV 10.1 (9.4-12.4) fL Seg Neutrophils % 52.0 % Band Neutrophils % 18.0 H (0-4) % Lymphocytes % 6.0 % Monocytes % 8.0 % Eosinophils % 2.0 % Metamyelocytes % 6.0 H (0) % Myelocytes % 8.0 H (0) % Neutrophils # 12.3 H (1.6-8.9) K/mcL Lymphocytes # 1.1 (0.6-4.6) K/mcL Monocytes # 1.4 H (0.0-1.3) K/mcL Eosinophils # 0.4 (0.0-0.6) K/mcL Platelet Estimate Normal (Normal) Sodium 123 L (136-145) mEq/L Potassium 2.6 L (3.5-5.1) mEq/L Chloride 85 L (98-107) mEq/L Carbon Dioxide 24 (23-29) mEq/L BUN 28 H (6-20) mg/dL Creatinine 2.10 H (0.60-1.20) mg/dL Est GFR ( Amer) 30 L (> 60) Est GFR (Non-Af Amer) 25 L (> 60) BUN/Creatinine Ratio 13 (6-26) Glucose 177 H (70-105) mg/dL Calculated Osmolality 266 L (280-300) Lactic Acid (0.5-2.2) mmol/L Calcium 8.4 L (8.6-10.3) mg/dL Total Bilirubin 0.5 (0.3-1.0) mg/dL Direct Bilirubin 0.1 (0.0-0.2) mg/dL Indirect Bilirubin 0.4 (0.0-1.2) mg/dL AST 14 (13-39) Units/L ALT 11 (7-52) Units/L Alkaline Phosphatase 50 (34-104) Units/L Serum Total Protein 6.2 L (6.4-8.9) g/dL Albumin 3.5 (3.5-5.7) g/dL Globulin 2.7 (2.4-3.5) g/dL Albumin/Globulin Ratio 1.3 (1.1-2.2) Urine Color (Yellow) Urine Clarity (Clear) Urine pH (5.0-8.0) pH Units Ur Specific [place] (1.010-1.025) Urine Protein (Neg-Trace) mg/dL Urine Glucose (UA) (Normal) mg/dL Urine Ketones (Negative) mg/dL Urine Blood (Negative) Urine Nitrite (Negative) Urine Bilirubin (Negative) Urine Urobilinogen (Normal) mg/dL Ur Leukocyte Esterase (Negative) Urine Microscopic WBC (0-3) per hpf Ur Squamous Epith Cells (None-Few) per lpf Amorphous Sediment (Few) Urine Bacteria (None-Few) per hpf Hyaline Casts (None-Few) per lpf Granular Casts (None Seen) per lpf Urine Mucus (Few) Ur Culture Indicated? (NO) Stl C. diff Tox B Gene (Negative) 02/11/19 02/11/19 02/11/19 Range/Units 19:11 19:45 21:00 WBC (4.3-11.1) K/mcL RBC (3.82-4.97) M/mcL Hgb (11.5-15.4) g/dL Hct (35.3-44.9) % MCV (83.0-100.0) fL MCH (28.0-33.3) pg MCHC (31.6-35.5) g/dL RDW (11.5-14.5) % Plt Count (140-400) K/mcL MPV (9.4-12.4) fL Seg Neutrophils % % Band Neutrophils % (0-4) % Lymphocytes % % Monocytes % % Eosinophils % % Metamyelocytes % (0) % Myelocytes % (0) % Neutrophils # (1.6-8.9) K/mcL Lymphocytes # (0.6-4.6) K/mcL Monocytes # (0.0-1.3) K/mcL Eosinophils # (0.0-0.6) K/mcL Platelet Estimate (Normal) Sodium (136-145) mEq/L Potassium (3.5-5.1) mEq/L Chloride (98-107) mEq/L Carbon Dioxide (23-29) mEq/L BUN (6-20) mg/dL Creatinine (0.60-1.20) mg/dL Est GFR ( Amer) (> 60) Est GFR (Non-Af Amer) (> 60) BUN/Creatinine Ratio (6-26) Glucose (70-105) mg/dL Calculated Osmolality (280-300) Lactic Acid 1.0 (0.5-2.2) mmol/L Calcium (8.6-10.3) mg/dL Total Bilirubin (0.3-1.0) mg/dL Direct Bilirubin (0.0-0.2) mg/dL Indirect Bilirubin (0.0-1.2) mg/dL AST (13-39) Units/L ALT (7-52) Units/L Alkaline Phosphatase (34-104) Units/L Serum Total Protein (6.4-8.9) g/dL Albumin (3.5-5.7) g/dL Globulin (2.4-3.5) g/dL Albumin/Globulin Ratio (1.1-2.2) Urine Color Yellow (Yellow) Urine Clarity Clear (Clear) Urine pH 6.0 (5.0-8.0) pH Units Ur Specific [place] 1.020 (1.010-1.025) Urine Protein 30 H (Neg-Trace) mg/dL Urine Glucose (UA) Normal (Normal) mg/dL Urine Ketones Negative (Negative) mg/dL Urine Blood Negative (Negative) Urine Nitrite Negative (Negative) Urine Bilirubin Negative (Negative) Urine Urobilinogen Normal (Normal) mg/dL Ur Leukocyte Esterase Trace H (Negative) Urine Microscopic WBC 5-15 H (0-3) per hpf Ur Squamous Epith Cells Moderate H (None-Few) per lpf Amorphous Sediment Few (Few) Urine Bacteria Few (None-Few) per hpf Hyaline Casts Moderate H (None-Few) per lpf Granular Casts Few H (None Seen) per lpf Urine Mucus Few (Few) Ur Culture Indicated? YES A (NO) Stl C. diff Tox B Gene Negative (Negative) - Radiology Data Radiology results reviewed: Yes I reviewed the patient's radiology results. - EKG Data EKG attestation: Yes I reviewed and interpreted this EKG. EKG results narrative: Twelve-lead EKG performed at 10:03 PM. Ordered, reviewed and interpreted by ED physician shows sinus rhythm at a rate of 82. Normal axis. Good hour progression across the precordium. No acute ischemic changes. Intervals are within normal limits.
[2019-02-11 19:21] LABS: Hematocrit 36.8 % (35.3-44.9); Hemoglobin 12.8 g/dL (11.5-15.4); Mean Corpuscular HGB Conc 34.8 g/dL (31.6-35.5); Mean Corpuscular Hemoglobin 29.6 pg (28.0-33.3); Mean Platelet Volume 10.1 fL (9.4-12.4); Platelet Count 377 K/mcL (140-400); Red Blood Count 4.33 M/mcL (3.82-4.97); Red Cell Distribution Width 14.4 % (11.5-14.5); White Blood Count 17.6 K/mcL (4.3-11.1)
[2019-02-11 19:36] LABS: Calcium 8.4 mg/dL (8.6-10.3); Potassium 2.6 mEq/L (3.5-5.1)
[2019-02-11 19:37] LABS: Albumin 3.5 g/dL (3.5-5.7); Albumin/Globulin Ratio 1.3 (1.1-2.2); Bilirubin,Direct 0.1 mg/dL (0.0-0.2); Bilirubin,Indirect 0.4 mg/dL (0.0-1.2); Bilirubin,Total 0.5 mg/dL (0.3-1.0); Globulin 2.7 g/dL (2.4-3.5); Total Protein 6.2 g/dL (6.4-8.9)
[2019-02-11 19:49] LABS: Eosinophils # 0.4 K/mcL (0.0-0.6); Lymphocytes # 1.1 K/mcL (0.6-4.6); Monocytes # 1.4 K/mcL (0.0-1.3); Neutrophils # 12.3 K/mcL (1.6-8.9)
[2019-02-11 19:50] LABS: Platelet Estimate Normal (Normal)
[2019-02-11] MEDS ORDERED: 0.9 % Sodium Chloride 1,000 ML IVC STA (20:39)
[2019-02-11] MEDS ORDERED: 0.9 % Sodium Chloride 1,000 ML ONE (20:42)
[2019-02-11 21:18] LABS: Bilirubin,Urine Negative (Negative); Blood,Urine Negative (Negative); Clarity,Urine Clear (Clear); Color,Urine Yellow (Yellow); Glucose,Urine (UA) Normal (Normal); Ketones,Urine Negative (Negative); Leukocyte Esterase,Urine Trace (Negative); Nitrite,Urine Negative (Negative); Protein,Urine 30 mg/dL (Neg-Trace); Urobilinogen,Urine Normal (Normal)
[2019-02-11 21:27] LABS: Granular Casts,Urine Few per lpf (None Seen); Hyaline Casts,Urine Moderate per lpf (None-Few); Mucus,Urine Few (Few); Squamous Epithelial Cell,Urine Moderate per lpf (None-Few)
[2019-02-11 21:28] LABS: Amorphous Sediment,Urine Few (Few); Bacteria,Urine Few per hpf (None-Few)
[2019-02-11] MEDS ORDERED: Potassium Chloride Elixir 20 MEQ/15 ML UDC PO ONE (21:52)
[2019-02-11] MEDS ORDERED: metroNIDAZOLE 250 MG TABLET PO ONE (21:56)
[2019-02-11] MEDS ORDERED: Naloxone 0.4 MG/ML INJ IVP PRN (22:18)
[2019-02-11] MEDS ORDERED: Ondansetron 4 MG/2 ML VIAL IVP PRN (22:18)
[2019-02-11] MEDS ORDERED: Methocarbamol 500 MG TABLET PO PRN (22:18)
[2019-02-11] MEDS ORDERED: Ondansetron 4 MG/2 ML VIAL ONE (22:19)
[2019-02-12] MEDS: 0.9 % Sodium Chloride w KCl 20 MEQ/1,000 ML MLS IVC SCH ×3 (00:13→15:26)
[2019-02-12] MEDS: Ipratropium/Albuterol Neb 3 ML IH SCH ×2 (03:53→09:12)
[2019-02-12 05:25] LABS: Hematocrit 33.7 % (35.3-44.9); Hemoglobin 11.8 g/dL (11.5-15.4); Mean Corpuscular Hemoglobin 29.8 pg (28.0-33.3); Mean Corpuscular Volume 85.1 fL (83.0-100.0); Mean Platelet Volume 11.2 fL (9.4-12.4); Platelet Count 340 K/mcL (140-400); Red Blood Count 3.96 M/mcL (3.82-4.97); Red Cell Distribution Width 14.1 % (11.5-14.5); White Blood Count 15.7 K/mcL (4.3-11.1)
[2019-02-12 05:46] LABS: Calcium 7.6 mg/dL (8.6-10.3); Potassium 3.1 mEq/L (3.5-5.1)
[2019-02-12 05:53] LABS: Lymphocytes # 0.9 K/mcL (0.6-4.6); Monocytes # 0.3 K/mcL (0.0-1.3); Neutrophils # 13.2 K/mcL (1.6-8.9); Platelet Estimate Normal (Normal)
[2019-02-12] MEDS: metroNIDAZOLE 250 MG TABLET PO SCH ×3 (06:16→21:57)
[2019-02-12] MEDS: lamoTRIgine 100 MG TABLET PO SCH ×2 (08:15→21:58)
[2019-02-12] MEDS: BuPROPion XL (24 HR) 150 MG TABLET PO SCH (08:15)
[2019-02-12] MEDS: clonazePAM 0.5 MG TABLET PO SCH ×3 (08:15→21:57)
[2019-02-12] MEDS: Aspirin Enteric Coated 81 MG Tablet PO SCH (08:15)
[2019-02-12] MEDS: *HR* Metformin 500 MG TABLET PO SCH ×2 (08:15→16:23)
[2019-02-12] MEDS: Budesonide/Formoterol 160/4.5 1 PUFF INH IH SCH ×2 (09:13→22:42)
--- NOTE | 2019-02-12 14:23 | Internal Med History&Physical ---
Date of Encounter: 02/12/19 Time of Encounter: 13:45 Assessment and Plan (1) Acute gastroenteritis Current visit: Yes Status: Acute IV fluids have been ordered. Antiemetics will be given as needed. Diet will be advanced as tolerated. (2) Hyponatremia Current visit: Yes Status: Acute Likely due to vomiting and diarrhea. Sodium level has risen to 128 from ER level of 123. Continue present Rx and recheck labs in a.m. (3) Hypokalemia Current visit: Yes Status: Acute Likely due to vomiting and diarrhea. Supplemental potassium has been ordered. Continue to monitor. (4) HTN (hypertension) Current visit: No Status: Chronic Continue Lopressor. Qualifiers: Hypertension type: essential hypertension Qualified Code(s): I10 - Essential (primary) hypertension (5) DMII (diabetes mellitus, type 2) Current visit: No Status: Chronic Hemoglobin A1c was 7.5% on 12/21/2018. Continue Glucophage and Accu-Cheks with SSI. Qualifiers: Diabetes mellitus intermediate insulin use: unspecified emt intermediate insulin use status Diabetes mellitus complication status: with kidney complications Chronic kidney disease stage: stage 2 (mild) Qualified Code(s): E11.22 - Type 2 diabetes mellitus with diabetic chronic kidney disease; N18.2 - Chronic kidney disease, stage 2 (mild) Internal Medicine - H&P: HPI Chief complaint: Vomiting and diarrhea Admitted From: Emergency Dept Plans for Post Hospital Care: Home History of present illness: Ms. Mancuso is a 53 year old female who was sent from her PCP office to emergency room after she presented with 3 day history of nonbloody vomiting and diarrhea. She reports fevers and chills and a cough productive of yellow/green sputum. She denies significant pain. She was evaluated in emergency room and was found to have hypokalemia, hyponatremia, neutrophilic leukocytosis, and acute renal failure. CT of abdomen/pelvis showed likely abdominal ileus. She was admitted to [facility] floor for ongoing care needs. She reports she has had no further diarrhea and only 1 episode of vomiting since admission to [facility] floor. She has had cholecystectomy. She has GERD. She denies disorders of her liver or exocrine pancreas. Past Med Surg Social Fam HX - Past Medical History Medical history: arthritis, asthma, COPD, coronary artery disease, diabetes, GERD, hyperlipidemia, hypertension, renal disease, other Additional medical history: OA, allergic rhinitis, B12 deficiency, iron deficiency, vit D deficiency, RLS Psychiatric history: anxiety, depression - Past Surgical History Surgical History: , cholecystectomy, hysterectomy, knee replacement Additional surgical history: heart cath no stents, EGD - Social History Smoking Status: Current every day smoker Packs per day: 1 Smokeless Tobacco Status: No Alcohol use: none Drug use: none - Family History Mother Living Status: Hx Family Respiratory Disorders: Yes Internal Medicine - H&P: Meds Bupropion HCl [Wellbutrin Xl] 300 mg PO DAILY 02/13/15 [History] Metoprolol [Lopressor] 25 mg PO BID 02/13/15 [History] Methocarbamol [Robaxin-750] 750 mg PO DAILY PRN 05/12/16 [History] Acetylcysteine [Nac] 500 mg PO BID #0 03/31/17 [History] Albuterol Sulfate [Ventolin Hfa] 2 puff IH Q4H PRN 03/31/17 [History] Aspirin Enteric Coated [Aspirin EC] 81 mg PO DAILY 03/31/17 [History] Atorvastatin Calcium [Lipitor] 20 mg PO DAILY 03/31/17 [History] Benztropine [Cogentin] 0.5 mg PO BID 03/31/17 [History] Ergocalciferol (VITAMIN D2) [Vitamin D2] 50,000 unit PO SA 03/31/17 [History] Furosemide [Lasix] 20 mg PO DAILY 03/31/17 [History] Ipratropium/Albuterol Neb [Duoneb] 3 ml IH Q6HR 03/31/17 [History] Mirtazapine [Remeron] 15 mg PO HS 03/31/17 [History] Montelukast [Singulair] 10 mg PO HS 03/31/17 [History] Omeprazole [PriLOSEC] 40 mg PO DAILY 03/31/17 [History] Ranitidine HCl [Zantac] 300 mg PO DAILY 03/31/17 [History] Umeclidinium Alba [Incruse Ellipta] 1 puff IH DAILY 03/31/17 [History] clonazePAM [Klonopin] 0.5 mg PO TID 03/31/17 [History] lamoTRIgine [Lamictal] 150 mg PO BID 03/31/17 [History] metFORMIN [Glucophage] 500 mg PO BIDWM 03/31/17 [History] risperiDONE [Risperdal] 2 mg PO BID 03/31/17 [History] Cyanocobalamin (Vitamin B-12) [Vitamin B-12] 1,000 mcg PO DAILY 07/23/17 [History] Ferrous Sulfate 325 mg PO DAILY 07/23/17 [History] Pantoprazole Sodium [Protonix] 40 mg PO DAILY 07/23/17 [History] Acetaminophen [Tylenol] 650 mg PO Q6HR PRN tablet 07/11/18 [Rx] Budesonide/Formoterol 160/4.5 [Symbicort 160/4.5] 2 puff IH BIDR #1 hfa.aer.ad 07/11/18 [Rx] Allergy/AdvReac Type Severity Reaction Status Date / Time ciprofloxacin [From Cipro] Allergy Hives Verified 07/23/17 10:39 levofloxacin [From Levaquin] Allergy Hives Verified 07/23/17 10:39 moxifloxacin [From Avelox] Allergy Hives Verified 07/23/17 10:39 ziprasidone [From Geodon] Allergy Rash Verified 07/23/17 10:39 Cyclobenzaprine AdvReac Agitated Verified 07/23/17 10:39 [From Flexeril] lurasidone [From Latuda] AdvReac mood Verified 07/23/17 10:39 changes All Systems PM: A 10-system review of systems was performed and is negative for pertinent findings except as documented above in the HPI. Review of systems: Review of systems from her July 2018 [facility] hospitalization were reviewed and revised as below. Gen.: Her weight is minimally changed approximately 29 kg since the July 2018 [facility] hospitalization. Cardiovascular: She has history of hypertension but denies [place] heart failure DVT or pulmonary embolus. She has occasional chest pain on exertion. Regadenoson EST 01/26/2019 showed perfusion imaging negative for ischemia. EKG portion was nondiagnostic due to nonspecific baseline ST-T normalities. LVEF was > 70%. Limited echocardiogram 10/14/2017 showed LVEF of 60-65%. The interventricular septum and posterior wall thickness measurements were 1.05 and 0.82 cm respectively. Echocardiogram 03/11/2016 showed no significant valvular abn ormalities. Respiratory: She has smoked since age 14 up to 2 packs per day. PFTs 09/12/2016 showed FVC 60% predicted, FEV1 60% predicted, FEV 1/FVC 71%, MVV 31% predicted, RV 205% predicted, and DLCO 47% predicted. There was slight improvement in FEV1 postbronchodilator. She was diagnosed with obstructive and restrictive lung disease. She wears oxygen at home 02/12. She denies known OUSMANE. GI: As per history of present illness : She denies hematuria dysuria or kidney stones Neurologic: She denies large distribution strokes or seizures. Endocrine: She was diagnosed with DM 2 at age 23. Hemoglobin A1c was 7.5% on 12/21/2018. She has hyperlipidemia but denies thyroid disease. Hematology/oncology: She denies blood disorders cancers or anemia Psychiatric: She has anxiety and depression but denies other mental health diagnoses. [place] skeletal: She has had bilateral total knee replacements. She has DJD but denies gout. - Constitutional Vitals: Temp Pulse Resp BP Pulse Ox 98.2 F 92 16 133/73 98 02/12/19 07:37 02/12/19 07:37 02/12/19 09:13 02/12/19 07:37 02/12/19 09:13 Exam: Gen.: She is a well-developed obese female lying in bed who appears in no significant distress at present time HEENT: Head is atraumatic and normocephalic. Eyes: EOMI. There is no scleral icterus. Mouth: Mucosa is moist. Neck: Supple and nontender. There is no thyromegaly or adenopathy noted. Heart: Regular without murmurs gallops or ectopics Lungs: No wheezes or crackles are heard. Abdomen: She has a large abdomen. It is tympanic to percussion. Bowel sounds are present with occasional high-pitched sound heard. No masses or guarding are noted. Extremities: She has trace to 1+ edema of the dorsum of the feet bilaterally, slightly more on the left than the right. Dorsalis pedis and posterior tibial pulses are trace palpable. Her feet are warm to touch. Neurologic: Mental status: She is talkative and a good historian. Cranial nerves: Smile is symmetric. Forehead wrinkles bilaterally. Tongue protrudes midline. EOMI. Motor: There is no pronator drift. Cerebellar: Fair to nose is intact bilaterally. Skin: Warm and dry Internal Med - H&P Results - Labs CBC & Chem 7: 02/12/19 04:46 02/12/19 04:46 Labs: Short CBC 02/11/19 02/12/19 Range/Units 19:11 04:46 WBC 17.6 H 15.7 H (4.3-11.1) K/mcL Hgb 12.8 11.8 (11.5-15.4) g/dL Hct 36.8 33.7 L (35.3-44.9) % Plt Count 377 340 (140-400) K/mcL Neutrophils # 12.3 H 13.2 H (1.6-8.9) K/mcL BMP 02/11/19 02/12/19 19:11 04:46 Sodium 123 L 128 L Potassium 2.6 L 3.1 L Chloride 85 L 94 L Carbon Dioxide 24 21 L BUN 28 H 25 H Creatinine 2.10 H 1.50 H Glucose 177 H 160 H Calcium 8.4 L 7.6 L Liver Function 02/11/19 Range/Units 19:11 Total Bilirubin 0.5 (0.3-1.0) mg/dL Direct Bilirubin 0.1 (0.0-0.2) mg/dL AST 14 (13-39) Units/L ALT 11 (7-52) Units/L Alkaline Phosphatase 50 (34-104) Units/L Albumin 3.5 (3.5-5.7) g/dL Urine 02/11/19 Range/Units 21:00 Urine Color Yellow (Yellow) Urine Clarity Clear (Clear) Urine pH 6.0 (5.0-8.0) pH Units Ur Specific [place] 1.020 (1.010-1.025) Urine Protein 30 H (Neg-Trace) mg/dL Urine Glucose (UA) Normal (Normal) mg/dL - Impressions ITS Impressions Chest X-Ray 02/11/19 19:14 IMPRESSION: No acute pulmonary disease. D/ / Gunnar Roque / Gunnar Roque Interpreting Provider: Gunnar Roque Abdomen/Pelvis CT 02/11/19 21:21 IMPRESSION: 1. Mild distention of multiple large and small bowel loops throughout the abdomen and pelvis without transition point or findings to suggest an obstruction. This may represent a mild ileus. 2. Normal appendix. 3. No acute findings within the abdomen or pelvis. D/ / 02/11/2019 22:14:23 Tj Sandoval MD / vicente Interpreting Provider: Tj Sandoval MD
--- NOTE | 2019-02-12 18:40 | Electrocardiograph Report ---
[address] [place], [place] [address] Test Date: 2019-02-11 Pat Name: Leeann Mancuso Department: [id number] Room: [facility] Gender: F Computer Console Operator: Destiney : 1965 Requested By: Leandro Myers Order Number: [id number] Reading MD: Rhett Beck Measurements Intervals [place] Rate: 82 P: 66 [place]: 174 QRS: 55 QRSD: 106 T: 41 QT: 399 QTc: 437 Interpretive Statements SINUS RHYTHM NONSPECIFIC T-WAVE ABNORMALITY Electronically Signed On 02-12-2019 18:39:04 EDT by Rhett Beck
[2019-02-12] MEDS: Mirtazapine 15 MG TABLET PO SCH (21:58)
[2019-02-13] MEDS: 0.9 % Sodium Chloride w KCl 20 MEQ/1,000 ML MLS IVC SCH ×3 (01:33→16:33)
[2019-02-13] MEDS: metroNIDAZOLE 250 MG TABLET PO SCH ×3 (05:53→21:51)
[2019-02-13 07:38] LABS: Hematocrit 31.8 % (35.3-44.9); Hemoglobin 10.7 g/dL (11.5-15.4); Mean Corpuscular HGB Conc 33.6 g/dL (31.6-35.5); Mean Corpuscular Hemoglobin 29.9 pg (28.0-33.3); Mean Corpuscular Volume 88.8 fL (83.0-100.0); Mean Platelet Volume 9.9 fL (9.4-12.4); Platelet Count 395 K/mcL (140-400); Red Blood Count 3.58 M/mcL (3.82-4.97); Red Cell Distribution Width 14.6 % (11.5-14.5); White Blood Count 14.4 K/mcL (4.3-11.1)
[2019-02-13 08:02] LABS: Alanine Aminotransferase 8 Units/L (7-52); Albumin 2.9 g/dL (3.5-5.7); Albumin/Globulin Ratio 1.3 (1.1-2.2); Alkaline Phosphatase 49 Units/L (34-104); Aspartate Amino Transferase 11 Units/L (13-39); BUN/Creatinine Ratio 12 (6-26); Bilirubin,Total 0.3 mg/dL (0.3-1.0); Blood Urea Nitrogen 13 mg/dL (6-20); Calcium 7.9 mg/dL (8.6-10.3); Carbon Dioxide 22 mEq/L (23-29); Chloride 104 mEq/L (98-107); Globulin 2.2 g/dL (2.4-3.5); Glucose 144 mg/dL (70-105); Osmolality,Calculated 277 (280-300); Phosphorous 2.4 mg/dL (2.7-4.5); Potassium 2.9 mEq/L (3.5-5.1); Sodium 132 mEq/L (136-145); Total Protein 5.1 g/dL (6.4-8.9); eGFR For African Americans > 60 (> 60); eGFR For Non-African Americans 54 (> 60)
[2019-02-13] MEDS: BuPROPion XL (24 HR) 150 MG TABLET PO SCH (08:44)
[2019-02-13] MEDS: Aspirin Enteric Coated 81 MG Tablet PO SCH (08:45)
[2019-02-13] MEDS: lamoTRIgine 100 MG TABLET PO SCH ×2 (08:45→21:52)
[2019-02-13] MEDS: clonazePAM 0.5 MG TABLET PO SCH ×3 (08:45→21:51)
[2019-02-13] MEDS: *HR* Metformin 500 MG TABLET PO SCH ×2 (08:45→15:42)
[2019-02-13 09:12] LABS: Anisocytosis 1+ (Not Present); Eosinophils # 0.6 K/mcL (0.0-0.6); Lymphocytes # 1.4 K/mcL (0.6-4.6); Monocytes # 1.7 K/mcL (0.0-1.3); Neutrophils # 10.4 K/mcL (1.6-8.9); Platelet Estimate Normal (Normal); Toxic Granulation Present (Not Present)
[2019-02-13] MEDS ORDERED: Potassium Chloride 40 MEQ, Lidocaine 1% 2 ML in 0.9 % Sodium Chloride 500 ML IVPB ONE (09:19)
--- NOTE | 2019-02-13 09:30 | Internal Med Progress Note ---
Date of Encounter: 02/13/19 Time of Encounter: 09:20 - Assessment and plan (1) Acute gastroenteritis Current Visit: Yes Status: Acute Assessment and plan: February 13. Resolving. WBC has decreased to 14.4 with less left shift. C ontinue present Rx. (2) Hyponatremia Current Visit: Yes Status: Acute Assessment and plan: February 13. Sodium level has improved 132. Continue present Rx. (3) Hypokalemia Current Visit: Yes Status: Acute Assessment and plan: February 13. Potassium level has decreased to 0.9. She will continue with oral and IV potassium supplementation. Recheck labs in a.m. (4) HTN (hypertension) Current Visit: No Status: Chronic Assessment and plan: February 13. Blood pressure borderline low. Hold metoprolol. Qualifiers: Hypertension type: essential hypertension Qualified Code(s): I10 - Essential (primary) hypertension (5) DMII (diabetes mellitus, type 2) Current Visit: No Status: Chronic Assessment and plan: February 13. Accu-Cheks acceptable. Continue Glucophage and SSI. 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 Hemoglobin has decreased to 10.7. Anemia testing will be ordered. Qualifiers: Anemia type: unspecified type Qualified Code(s): D64.9 - Anemia, unspecified - Subjective Interval history: February 13. She has no new complaints and feels better. She reports she ate all of her breakfast. She denies pain. - Constitutional Vitals: Temp Pulse Resp BP Pulse Ox 97.6 F 77 20 96/68 98 02/13/19 07:12 02/13/19 07:12 02/13/19 07:12 02/13/19 07:12 02/13/19 07:12 Exam: She is sitting in a chair at bedside resting comfortably. Her affect is bright and cheerful. I reviewed her medications and lab results. Internal Medicine: Result - Labs CBC & Chem 7: 02/13/19 07:00 02/13/19 07:00 Labs: Short CBC 02/13/19 Range/Units 07:00 WBC 14.4 H (4.3-11.1) K/mcL Hgb 10.7 L (11.5-15.4) g/dL Hct 31.8 L (35.3-44.9) % Plt Count 395 (140-400) K/mcL Neutrophils # 10.4 H (1.6-8.9) K/mcL BMP 02/13/19 07:00 Sodium 132 L Potassium 2.9 L Chloride 104 Carbon Dioxide 22 L BUN 13 Creatinine 1.07 Glucose 144 H Calcium 7.9 L Liver Function 02/13/19 Range/Units 07:00 Total Bilirubin 0.3 (0.3-1.0) mg/dL AST 11 L (13-39) Units/L ALT 8 (7-52) Units/L Alkaline Phosphatase 49 (34-104) Units/L Albumin 2.9 L (3.5-5.7) g/dL Consult Discharge Plan - Plan Referrals: Meli Noyola MD [Primary Care Provider] - 1 week
[2019-02-13] MEDS: Budesonide/Formoterol 160/4.5 1 PUFF INH IH SCH ×2 (10:37→21:54)
[2019-02-13 20:32] LABS: % Iron Saturation 12 % (15-50); Iron 22 mcg/dL (50-170); Transferrin 134 mg/dL (203-362)
[2019-02-13 20:48] LABS: Ferritin 221 ng/mL (10-120)
[2019-02-13 21:03] LABS: Folate 7.8 ng/mL (3.0-16.0)
[2019-02-13] MEDS: Mirtazapine 15 MG TABLET PO SCH (21:51)
[2019-02-14] MEDS: 0.9 % Sodium Chloride w KCl 20 MEQ/1,000 ML MLS IVC SCH (03:30)
[2019-02-14] MEDS: metroNIDAZOLE 250 MG TABLET PO SCH (05:50)
[2019-02-14 07:10] LABS: Hematocrit 33.4 % (35.3-44.9); Hemoglobin 10.9 g/dL (11.5-15.4); Mean Corpuscular HGB Conc 32.6 g/dL (31.6-35.5); Mean Corpuscular Hemoglobin 29.5 pg (28.0-33.3); Mean Corpuscular Volume 90.3 fL (83.0-100.0); Mean Platelet Volume 9.8 fL (9.4-12.4); Platelet Count 431 K/mcL (140-400); Red Cell Distribution Width 15.1 % (11.5-14.5); White Blood Count 16.3 K/mcL (4.3-11.1)
[2019-02-14 07:34] LABS: Alanine Aminotransferase 9 Units/L (7-52); Albumin/Globulin Ratio 1.4 (1.1-2.2); Alkaline Phosphatase 54 Units/L (34-104); Aspartate Amino Transferase 11 Units/L (13-39); BUN/Creatinine Ratio 10 (6-26); Bilirubin,Total 0.2 mg/dL (0.3-1.0); Blood Urea Nitrogen 10 mg/dL (6-20); Calcium 8.3 mg/dL (8.6-10.3); Carbon Dioxide 21 mEq/L (23-29); Chloride 109 mEq/L (98-107); Globulin 2.2 g/dL (2.4-3.5); Glucose 137 mg/dL (70-105); Osmolality,Calculated 285 (280-300); Phosphorous 3.3 mg/dL (2.7-4.5); Potassium 3.8 mEq/L (3.5-5.1); Sodium 137 mEq/L (136-145); Total Protein 5.2 g/dL (6.4-8.9); eGFR For African Americans > 60 (> 60); eGFR For Non-African Americans 55 (> 60)
[2019-02-14 09:05] LABS: Anisocytosis 1+ (Not Present); Lymphocytes # 1.3 K/mcL (0.6-4.6); Monocytes # 2.9 K/mcL (0.0-1.3); Neutrophils # 10.8 K/mcL (1.6-8.9); Platelet Estimate Normal (Normal); Reactive Lymphocytes Present (Not Present); Toxic Granulation Present (Not Present)
--- NOTE | 2019-02-14 09:20 | Discharge Summary ---
Orders not resulted at time of discharge: Pending orders 02/11/19 21:00 Culture,Urine [RM] Stat Date of Encounter: 02/14/19 Time of Encounter: 09:05 - Discharge Diagnosis (1) Acute gastroenteritis Priority: Primary Status: Acute (2) Hyponatremia Priority: Secondary Status: Resolved (3) Hypokalemia Priority: Secondary Status: Resolved (4) HTN (hypertension) Priority: Secondary Status: Chronic Qualifiers: Hypertension type: essential hypertension Qualified Code(s): I10 - Essential (primary) hypertension (5) DMII (diabetes mellitus, type 2) Priority: Secondary Status: Chronic Qualifiers: Diabetes mellitus [facility] insulin use: unspecified [facility] insulin use status Diabetes mellitus complication status: with kidney complications Chronic kidney disease stage: stage 2 (mild) Qualified Code(s): E11.22 - Type 2 diabetes mellitus with diabetic chronic kidney disease; N18.2 - Chronic kidney disease, stage 2 (mild) (6) Anemia Priority: Secondary Status: Acute Qualifiers: Anemia type: unspecified type Qualified Code(s): D64.9 - Anemia, u nspecified Hospital course: Ms. Mancuso is a 53 year old female who was sent from her PCP office to emergency room after she presented with 3 day history of nonbloody vomiting and diarrhea. She reports fevers and chills and a cough productive of yellow/green sputum. She denies significant pain. She was evaluated in emergency room and was found to have hypokalemia, hyponatremia, neutrophilic leukocytosis, and acute renal failure. CT of abdomen/pelvis showed likely abdominal ileus. She was admitted to [facility] floor for ongoing care needs. I saw her February 12 and performed the history and physical. She was given IV fluids. Antiemetics were given as needed. Vomiting resolved after the first 24 hours. Supplemental potassium was given and hypokalemia resolved. Phosphorus level was low at 2.4 but normalized after administration of Neutra-Phos. Serum sodium level normalized to 137 by day of discharge. Hemoglobin decreased to 10.7 on February 13. Anemia testing showed iron 22, transferrin saturation 12%, transferrin 134, ferritin 221, B12 1346, and folate 7.8. She will be started on a trial of ferrous sulfate with ascorbic acid discharge. Her PCP can monitor labs. No workup to determine the etiology of iron deficiency was done during her hospital stay. She takes aspirin 81 mg daily. Her PCP can determine if additional evaluation such as endoscopy is indicated. WBC fluctuated during her hospitalization but was still elevated at 16.3 on day of discharge. She had occasional low-grade fever. She was placed empirically on oral Flagyl by ER physician for possible colitis. Urine culture preliminary report available on day of discharge showed 3 different gram-negative joel organisms growing. Patient denied UTI symptoms. Pro-calcitonin was elevated at 0.32. She will be given Bactrim DS for 3 days empirically. Flagyl will not be continued. Her PCP can follow up urine culture report to ensure adequate coverage. Blood pressure was borderline low during hospitalization. Metoprolol was held and she will remain off this at discharge. On February 14 she felt significantly improved and wished to be discharged home. She will follow with her PCP Dr. Noyola within 1 week. - Time Spent with Patient Total time spent providing and/or coordinating discharge services: - Discharge Medications Prescriptions: New Sulfamethoxazole/Trimeth DS [Bactrim DS] 1 each PO BID #6 tablet Lactobacillus [Culturelle] 1 each PO BID #6 cap.sprink Ascorbic Acid [Vitamin C] 500 mg PO DAILY #30 tablet.er Continued Albuterol Sulfate [Ventolin Hfa] 2 puff IH Q4H PRN PRN Reason: Shortness Of Breath Aspirin Enteric Coated [Aspirin EC] 81 mg PO DAILY Atorvastatin Calcium [Lipitor] 20 mg PO DAILY Benztropine [Cogentin] 0.5 mg PO BID clonazePAM [Klonopin] 0.5 mg PO TID Ergocalciferol (VITAMIN D2) [Vitamin D2] 50,000 unit PO SA Ipratropium/Albuterol Neb [Duoneb] 3 ml IH Q6HR lamoTRIgine [Lamictal] 150 mg PO BID metFORMIN [Glucophage] 500 mg PO BIDWM Mirtazapine [Remeron] 15 mg PO HS Montelukast [Singulair] 10 mg PO HS Acetylcysteine [Nac] 500 mg PO BID #0 risperiDONE [Risperdal] 2 mg PO BID Umeclidinium Pearce [Incruse Ellipta] 1 puff IH DAILY Cyanocobalamin (Vitamin B-12) [Vitamin B-12] 1,000 mcg PO DAILY Ferrous Sulfate 325 mg PO DAILY Bupropion HCl [Wellbutrin Xl] 300 mg PO DAILY Methocarbamol [Robaxin-750] 750 mg PO DAILY PRN PRN Reason: Muscle Spasm Acetaminophen [Tylenol] 650 mg PO Q6HR PRN tablet PRN Reason: Pain Budesonide/Formoterol 160/4.5 [Symbicort 160/4.5] 2 puff IH BIDR #1 hfa.aer.ad Changed Ranitidine HCl [Zantac] 300 mg PO DAILY PRN #0 PRN Reason: Dyspepsia Discontinued Furosemide [Lasix] 20 mg PO DAILY Omeprazole [PriLOSEC] 40 mg PO DAILY Pantoprazole Sodium [Protonix] 40 mg PO DAILY Metoprolol [Lopressor] 25 mg PO BID Home Medications: Bupropion HCl [Wellbutrin Xl] 300 mg PO DAILY 02/13/15 [History] Methocarbamol [Robaxin-750] 750 mg PO DAILY PRN 05/12/16 [History] Acetylcysteine [Nac] 500 mg PO BID #0 03/31/17 [History] Albuterol Sulfate [Ventolin Hfa] 2 puff IH Q4H PRN 03/31/17 [History] Aspirin Enteric Coated [Aspirin EC] 81 mg PO DAILY 03/31/17 [History] Atorvastatin Calcium [Lipitor] 20 mg PO DAILY 03/31/17 [History] Benztropine [Cogentin] 0.5 mg PO BID 03/31/17 [History] Ergocalciferol (VITAMIN D2) [Vitamin D2] 50,000 unit PO SA 03/31/17 [History] Ipratropium/Albuterol Neb [Duoneb] 3 ml IH Q6HR 03/31/17 [History] Mirtazapine [Remeron] 15 mg PO HS 03/31/17 [History] Montelukast [Singulair] 10 mg PO HS 03/31/17 [History] Umeclidinium Pearce [Incruse Ellipta] 1 puff IH DAILY 03/31/17 [History] clonazePAM [Klonopin] 0.5 mg PO TID 03/31/17 [History] lamoTRIgine [Lamictal] 150 mg PO BID 03/31/17 [History] metFORMIN [Glucophage] 500 mg PO BIDWM 03/31/17 [History] risperiDONE [Risperdal] 2 mg PO BID 03/31/17 [History] Cyanocobalamin (Vitamin B-12) [Vitamin B-12] 1,000 mcg PO DAILY 07/23/17 [History] Ferrous Sulfate 325 mg PO DAILY 07/23/17 [History] Acetaminophen [Tylenol] 650 mg PO Q6HR PRN tablet 07/11/18 [Rx] Budesonide/Formoterol 160/4.5 [Symbicort 160/4.5] 2 puff IH BIDR #1 hfa.aer.ad 07/11/18 [Rx] Ascorbic Acid [Vitamin C] 500 mg PO DAILY #30 tablet.er 02/14/19 [Rx] Lactobacillus [Culturelle] 1 each PO BID #6 cap.sprink 02/14/19 [Rx] Ranitidine HCl [Zantac] 300 mg PO DAILY PRN #0 02/14/19 [Rx] Sulfamethoxazole/Trimeth DS [Bactrim DS] 1 each PO BID #6 tablet 02/14/19 [Rx] Allergies/Adverse Reactions: Allergy/AdvReac Type Severity Reaction Status Date / Time ciprofloxacin [From Cipro] Allergy Hives Verified 07/23/17 10:39 levofloxacin [From Levaquin] Allergy Hives Verified 07/23/17 10:39 moxifloxacin [From Avelox] Allergy Hives Verified 07/23/17 10:39 ziprasidone [From Geodon] Allergy Rash Verified 07/23/17 10:39 Cyclobenzaprine AdvReac Agitated Verified 07/23/17 10:39 [From Flexeril] lurasidone [From Latuda] AdvReac mood Verified 07/23/17 10:39 changes Date of admission: 02/13/19 10:51 Primary care physician: Meli Noyola Consults: 02/11/19 23:11 Consult to Nutrition [CONS] Routine Comment: Consulting Provider: NUTRITION Reason for Dietary Consult: MST Score - Constitutional Vitals: Temp Pulse Resp BP Pulse Ox 97.8 F 76 16 107/71 97 02/14/19 02:57 02/14/19 02:57 02/14/19 02:57 02/14/19 02:57 02/14/19 02:57 - Patient Status Disposition: Home, Self-Care Condition: Fair - Discharge Instructions Follow Up With: Meli Noyola MD [Primary Care Provider] - 1 week - Diet and Activity Activity: resume usual activities as tolerated Diet: diabetic diet
[2019-02-14 09:33] VITALS: BP 115/74
[2019-02-14] MEDS: Budesonide/Formoterol 160/4.5 1 PUFF INH IH SCH (10:17)
[2019-02-14] MEDS: lamoTRIgine 100 MG TABLET PO SCH (10:23)
[2019-02-14] MEDS: *HR* Metformin 500 MG TABLET PO SCH (10:23)
[2019-02-14] MEDS: clonazePAM 0.5 MG TABLET PO SCH (10:23)
[2019-02-14] MEDS: Aspirin Enteric Coated 81 MG Tablet PO SCH (10:24)
[2019-02-14] MEDS: BuPROPion XL (24 HR) 150 MG TABLET PO SCH (10:24)
== END 2019-02-14 10:56 | disposition home or self-care (01) | DRG 249 ==
LOC: EMEROOPIK 18:13 → INPPIK 18:13
PROVIDERS: ADMIT Internal Medicine; ATTEND Internal Medicine